=== PATIENT | male | born 2000 | race Caucasian/White ===

== ENCOUNTER 2024-02-19 21:13 | Emergency (ER) | payer OTHER ==
[~2024-02-19] VITALS: Ht 162.6 cm; Wt 59.0 kg
[2024-02-19 23:31] VITALS: BP 142/64; TEMP 98.7
[2024-02-19] MEDS ORDERED: AMOX-430 PO (23:32)
[2024-02-19] MEDS ORDERED: IBUPROFEN 400 MG TABLET ONE (23:34)
[2024-02-19] MEDS ORDERED: AMOX/CLAVULANATE 875 MG TABLET ONE (23:35)
[2024-02-19] MEDS ORDERED: TDAP [DIPH/PERTUSSIS/TET] 0.5 ML VIAL IM ONE (23:35)
[2024-02-19] MEDS: IBUPROFEN 400 MG TABLET PO ONE (23:41)
[2024-02-19] MEDS: AMOX/CLAVULANATE 875 MG TABLET PO ONE (23:41)
[2024-02-19] MEDS: TDAP [DIPH/PERTUSSIS/TET] 0.5 ML VIAL IM ONE (23:41)
[2024-02-20 00:05] VITALS: O2SAT 99
== END 2024-02-20 00:06 | disposition home or self-care (01) ==
LOC: ER 21:22
DX: S91.332A Puncture wound without foreign body, left foot, initial encounter (principal); Z79.899 Other long term (current) drug therapy; Z60.2 Problems related to living alone; W45.0XXA Nail entering through skin, initial encounter; Y93.89 Activity, other specified; Y92.89 Other specified places as the place of occurrence of the external cause; Y99.8 Other external cause status
CPT/HCPCS: 90715